=== PATIENT | male | born 1960 | race Caucasian/White ===

== ENCOUNTER 2023-01-08 11:26 | Emergency (ER) | payer OTHER, MEDICAID ==
[~2023-01-08] VITALS: Ht 172.7 cm; Wt 95.0 kg
[2023-01-08 11:29] VITALS: TEMP 97.8
[2023-01-08] MEDS ORDERED: ketorolac trometh inj. 60 MG/2 ML VIAL IM ONE (13:10)
[2023-01-08] MEDS ORDERED: orphenadrine citrate 60mg/2ml inj. IM ONE (13:10)
[2023-01-08] MEDS ORDERED: ketorolac tromethamine 15mg/ml inj. IM ONE (13:15)
[2023-01-08] MEDS ORDERED: HYDR-3965 PO (13:32)
[2023-01-08] MEDS ORDERED: LISI20TA28 PO (13:47)
[2023-01-08 13:52] VITALS: BP 187/106; PULSE 78; RESP 14; O2SAT 97
== END 2023-01-08 13:54 | disposition home or self-care (01) ==
LOC: ER 11:27
DX: M54.2 Cervicalgia (principal); M54.12 Radiculopathy, cervical region; V89.2XXA Person injured in unspecified motor-vehicle accident, traffic, initial encounter; Y93.89 Activity, other specified; Y92.89 Other specified places as the place of occurrence of the external cause; Y99.8 Other external cause status
CPT/HCPCS: 70450; 72125; 96372; 99285; J1885; J2360

== ENCOUNTER 2025-04-27 08:32 | Emergency (ER) | payer MEDICAID, OTHER ==
[~2025-04-27] VITALS: Ht 172.7 cm; Wt 79.6 kg
[2025-04-27 08:43] VITALS: TEMP 97.6
--- NOTE | 2025-04-27 10:50 | Physician Documentation ---
History of Present Illness ~ Chief Complaint: Abdominal Pain Stated Complaint: ABD PAIN Time Seen by MD: 10:17 Mode of Arrival: POV, Ambulatory HPI This is a 65-year-old male with distant history of abdominal hernia repair in 2007 who presents with one-week of umbilicus pain and discharge described as bloody and purulent. Patient reports no other acute symptoms or concerns. Tetanus Within 5 Years: No Medication Reconciliation Allergies: Coded Allergies: No Known Allergies (Unverified , 04/27/25) Scheduled Fluconazole* (Diflucan*), 1 TAB PO Q7D Mupirocin* (Bactroban*), 1 APPLIC TOP Q8H Sulfamethoxazole/Trimethoprim (Bactrim Ds Tablet), 1 TAB PO Q12H Past Medical History Past Medical History: No Pertinent History Review of Systems ROS As stated above in the HPI, otherwise all systems are reviewed and negative. Physical Exam Vital Signs: Temperature: 97.6, Source: Temporal, Heart Rate: 85, Respiratory Rate: 11, BP: 185/91, Pulse Oximetry: 98, Weight: 79.600 Oxygen Flow Rate: 0 Physical Exam VITALS: Reviewed and as above. GENERAL: Alert, nontoxic appearing, no apparent distress. 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 Ds Tab (Septra Ds (04/27/25 10:35) Vital Signs 04/27/25 04/27/25 04/27/25 04/27/25 08:43 09:15 09:19 10:52 Temp 97.6 Pulse 98 85 Resp 18 17 11 18 B/P (MAP) 153/98 185/91 (122) Pulse Ox 99 98 O2 Flow Rate 0 0 04/27/25 11:06 Pulse 82 Resp 12 B/P (MAP) 125/87 Pulse Ox 98 Medical Decision Making Additional information obtaine: N/A Findings This 65-year-old male presented with pain and discharge from his umbilicus, physical exam is consistent with localized skin infection in his reassuring there is no surrounding erythema, induration, or fluctuance and no pain with deep palpation to suggest deep tissue infection. Patient is otherwise well- appearing with stable vital signs making sepsis of low likelihood. Given the extensive time between abdominal surgery and infection I do not suspect surgical site infection or involvement of surgical mesh. Attending ED MD consulted. Patient to be treated with oral antibiotics, oral antifungal, and topical antibiotic. Increased blood pressure on triage attributed to pain. Patient is appropriate for outpatient follow up and has been directed to follow up with primary care provider for recheck after completion of oral antibiotics. Patient provided careful return to care precautions follow up instructions, and home care instructions. Differential Dx:Considerations: Include: Abscess, Bacteremia, Cellulitis, Erysipelas, Gas gangrene, Impetigo, Lymphangitis, Septicemia, Other (Necrotizing fasciitis, surgical site infection) Departure Time of Disposition: 10:50 Disposition: 01 HOME / SELF CARE / HOMELESS Impression: Primary Impression: Cellulitis Qualified Codes: L03.316 - Cellulitis of umbilicus Condition: Improved Discharge Instructions: Cellulitis, Adult Additional Instructions: Please take the antibiotics and antifungals as prescribed. Keep the area clean and dry. You may use ibuprofen and or Tylenol as needed for pain. Please follow up with your primary care provider in the next few days for recheck. Please return to the emergency department for any new or worsening concerning symptoms including but not limited to worsening pain or if you develop a fever over 100.4 that does not lower with ibuprofen or Tylenol. Referrals: NO PRIMARY CARE PROVIDER (PCP) Prescriptions Fluconazole* (Diflucan*) 150 Mg Tablet 1 TAB PO Q7D for 21 Days, #3 TAB Prov: TREE TREJOP 04/27/25 Mupirocin* (Bactroban*) 22 Gm Tube 1 APPLIC TOP Q8H for 7 Days, #22 GM apply to affected area(s) Prov: TREE TREJO 04/27/25 Sulfamethoxazole/Trimethoprim (Bactrim Ds Tablet) 800 Mg-160 Mg Tablet 1 TAB PO Q12H for 10 Days, #20 TAB Prov: TREE TREJOP 04/27/25 Education Educated: Patient Educated regarding: diagnosis, treatment, prognosis, need for follow up Signature Scribe Signature: No scribe Attestation: The note accurately reflects work and decisions made by me.SKIP Monreal 04/27/25 20:27 TREE TREJO Apr 27, 2025 10:50
[2025-04-27] MEDS: sulfamethoxazole/trimethoprim DS (800/160mg) tablet PO ONE (10:52)
[2025-04-27] MEDS: ketorolac trometh 15mg/ml vial 15 MG/ML ML IM ONE (10:52)
[2025-04-27] MEDS ORDERED: SULF1TAB49 PO (10:53)
[2025-04-27] MEDS ORDERED: DIF150T PO (10:53)
[2025-04-27] MEDS ORDERED: MUPI22OI30 TOP (10:53)
[2025-04-27 11:06] VITALS: BP 125/87; PULSE 82; RESP 12; O2SAT 98
== END 2025-04-27 11:10 | disposition home or self-care (01) ==
LOC: ER 08:32
DX: L03.316 Cellulitis of umbilicus (principal); Z79.899 Other long term (current) drug therapy
CPT/HCPCS: 96372; 99283; J1885